=== PATIENT | female | born 1950 | race Caucasian/White ===

== ENCOUNTER 2018-01-23 08:52 | Emergency (ER) | payer MEDICARE ==
[~2018-01-23] VITALS: Ht 167.6 cm; Wt 90.0 kg
[~2018-01-23 08:52] MED LIST: CINNAMON500 MG PO; GLUCOPHAGE1000 MG PO; GLYBURIDE5 MG PO; KEFLEX500 MG PO; LISINOP/HCTZ1 TAB PO
[2018-01-23 09:54] LABS: HEMATOCRIT 38.5 % (37.0-47.0); HEMOGLOBIN 12.8 g/dl (12.0-16.0); IMMATURE GRANULOCYTES 0.4 % (0.0-1.0); MEAN CELL VOLUME 87.5 fL CALC (80.0-100.0); MEAN CORPUSCULAR HGB 29.1 pG CALC (26.0-32.0); MEAN CORPUSCULAR HGB CONC 33.2 g/L CALC (32.0-36.0); NEUT# 7.34 thou/uL (2.00-7.15); RED BLOOD COUNT 4.4 mill/uL (4.20-5.60); RED CELL DISTRI WIDTH 11.6 % (11.5-15.5)
[2018-01-23] MEDS ORDERED: GLIPIZIDE5 MG PO (09:59)
[2018-01-23] MEDS ORDERED: LASIX40 MG PO (10:00)
[2018-01-23] MEDS ORDERED: LOSARTAN POT25 MG PO (10:02)
[2018-01-23] MEDS ORDERED: GNP RED YEAST600 MG PO (10:03)
[2018-01-23 10:39] LABS: ALBUMIN 3.5 g/dL (3.2-5.0); ALKALINE PHOSPHATASE 77 u/l (38-126); ANION GAP 16 (6-22 (CALC)); BILIRUBIN, TOTAL 0.6 mg/dL (0.0-1.4); BUN 10 mg/dL (8-23); BUN/CREATININE RATIO 17 (12-20 (CALC)); CARBON DIOXIDE 24 mmol/l (22-30); CHLORIDE 99 mmol/l (95-108); CREATININE 0.6 mg/dL (0.5-1.0); GFR > 60 ML/MIN (>=60 (CALC)); GFR FOR AFR.AMER. > 60 ML/MIN (>=60 (CALC)); POTASSIUM 4.2 mmol/l (3.5-5.1); SGOT/AST 17 u/l (9-36); SGPT/ALT 40 u/l (11-66); SODIUM 135 mmol/l (137-146); TOTAL PROTEIN 6.2 g/dL (6.3-8.2)
[2018-01-23] MEDS ORDERED: PERCOCET 5/325M1 TAB PO ×2 (11:29→12:01)
[2018-01-23] MEDS ORDERED: FLEXERIL PO (11:29)
[2018-01-23] MEDS ORDERED: NAPROXEN DR500 MG PO (11:29)
[2018-01-23 12:14] VITALS: BP 128/65
== END 2018-01-23 11:57 | disposition home or self-care (01) ==
LOC: ED 08:52
PROVIDERS: Emergency Medicine
DX: M54.5 Low back pain (principal); E11.9 Type 2 diabetes mellitus without complications

== ENCOUNTER 2022-08-22 12:52 | Emergency (ER) | payer OTHER, MEDICARE ==
[~2022-08-22] VITALS: Ht 167.6 cm; Wt 86.4 kg
[~2022-08-22 12:52] MED LIST changes: +FLEXERIL PO; +GLIPIZIDE5 MG PO; +GNP RED YEAST600 MG PO; +LASIX40 MG PO; +LOSARTAN POT25 MG PO; +NAPROXEN DR500 MG PO; +PERCOCET 5/325M1 TAB PO
[2022-08-22 13:04] VITALS: BP 158/86
[2022-08-22 13:15] VITALS: BP 142/91
[2022-08-22] MEDS ORDERED: B12-ACTIVE1 MG PO (13:26)
[2022-08-22] MEDS ORDERED: DRIZALMA SPRINK20 MG PO (13:27)
[2022-08-22 15:00] VITALS: BP 170/72
== END 2022-08-22 15:01 | disposition home or self-care (01) | DRG 605 ==
LOC: ED 12:52
DX: S00.03XA Contusion of scalp, initial encounter (principal); S06.0X0A Concussion without loss of consciousness, initial encounter; W01.0XXA Fall on same level from slipping, tripping and stumbling without subsequent striking against object, initial encounter

== ENCOUNTER 2024-07-13 09:31 | Observation (INO) | payer MEDICARE ==
[~2024-07-13] VITALS: Ht 165.1 cm; Wt 76.2 kg
[~2024-07-13 09:31] MED LIST changes: +ALEVE220 M2 PO; +B12-ACTIVE1 MG PO; +B121000 MC1; +CINSULIN PO; +COZAAR25 MG PO; +DIAZEPAM10 MG PO; +DRIZALMA SPRINK20 MG PO; +DULCOLAX5 MG PO; +FLEXERIL5 M1 PO; +GLIPIZIDE ER5 MG PO; +GLYCOPYRROLATE 0.2 MG/ML IV ONE; +HYDROCO/APAP1 TA9 PO; +KETOROLAC TROMETHAMINE 30 MG/ML SDV IV ONE; +LIDOCAINE HCL 2% 2ML SDV IV ONE; +METFORMIN500 M2 PO; +METOPROLOL TARTRATE 5 MG/5 ML VIAL IV ONE; +ONDANSETRON HCl 4 MG/2 ML SDV IV ONE; +OXYCODONE5 M1 PO; +PROPOFOL 200 MG/20 ML VIAL IV ONE; +ROCURONIUM BROMIDE 10 MG/ML 5ML VIAL IV ONE; +SODIUM CHLORIDE 0.9% 1,000 ML BAG IV ONE; +SUCCINYLCHOLINE CHLORIDE 20 MG/ML 10ML VIAL IV ONE; +SUGAMMADEX SODIUM 200 MG/2 ML SDV IV ONE; +ePHEDrine SULFATE 50 MG/ML AMP IV ONE; +hydrALAZINE HCL 20 MG/ML VIAL(1 ML) IV ONE
[2024-07-13] MEDS ORDERED: SODIUM CHLORIDE 0.9% 100 ML IV ONE (09:34)
[2024-07-13] MEDS ORDERED: ceFAZolin Sodium 2 GM/VIAL SDV ONE (09:34)
[2024-07-13] MEDS ORDERED: FAMOTIDINE 10MG/ML 2ML SDV IV ONE (09:34)
[2024-07-13] MEDS ORDERED: SODIUM CHLORIDE 0.9% 1,000 ML IV ONE (09:34)
[2024-07-13] MEDS ORDERED: LIDOcaine HCl 1% (Local Anesth.) 20 ML VIAL ONE (10:09)
[2024-07-13] MEDS ORDERED: SODIUM CHLORIDE 1,000 ML BTL IR ONE (10:09)
[2024-07-13] MEDS ORDERED: STERILE WATER FOR IRRIGATION 1,000 ML BTL IR ONE (10:09)
[2024-07-13] MEDS ORDERED: BUPIVACAINE HCL PF 0.5 % 50 MG/10 ML SDV ONE (11:15)
[2024-07-13] MEDS ORDERED: HYDROCO/APAP1 TA9 PO (11:15)
[2024-07-13] MEDS ORDERED: ACETAMINOPHEN 100 ML IV ONE (12:25)
[2024-07-13] MEDS ORDERED: HYDROmorphone HCL 2 MG/AMP ONE (12:38)
[2024-07-13] MEDS ORDERED: HYDROmorphone HCL 2 MG/AMP IV PRN (14:25)
[2024-07-13] MEDS ORDERED: SODIUM CHLORIDE 0.9% 1,000 ML IV PRN (14:25)
[2024-07-13] MEDS ORDERED: oxyCODONE 5MG/ ACETAMINOPHEN 325MG TAB PO PRN (14:25)
[2024-07-13] MEDS ORDERED: DEXTROSE 250 ML IV PRN (14:30)
--- NOTE | 2024-07-13 14:40 | NUR ---
PATIENT ADMITTED FROM OR TO ROOM 277. PATIENT A&OX4 AND ABLE TO MAKE NEEDS KNOWN. PATIENT ORIENTED TO ROOM, CALL LIGHT, AND SURROUNDINGS, PATIENT VERBALIZED UNDERSTANDING. PATIENT DENIES ANY NEEDS AT THIS TIME. PATIENT TOP 2 SIDERAILS UP, BED AT LOWEST LEVEL, AND CALL LIGHT WITHIN REACH.
[2024-07-13 15:38] VITALS: BP 136/63
--- NOTE | 2024-07-13 15:41 | NUR ---
PATIENT SITTING UP IN BED. FAMILY AT BEDSIDE. PATIENT DENIES ANY NEEDS AT THIS TIME.
--- NOTE | 2024-07-13 15:48 | NUR ---
PATIENT REFUSING POST-OP VITAL SIGNS.
--- NOTE | 2024-07-13 15:48 | NUR ---
Iwent in to set patient up for post op vitals, but patient stated she does not like our machine and does not want it. I notified nurse. I did take one set and they were ok. 97.3, 76, 18, 136/63, and 94.
[2024-07-13] MEDS ORDERED: INSULIN LISPRO 100 UNITS/ML ML SC SCH (17:00)
[2024-07-13] MEDS ORDERED: KETOROLAC TROMETHAMINE 15 MG/ML SDV IV SCH (18:00)
[2024-07-13 18:30] VITALS: BP 134/71
[2024-07-13 18:38] VITALS: BP 134/71
--- NOTE | 2024-07-13 19:45 | NUR ---
PT RESTING IN BED NO DISTRESS NOTED ON EXAM. PT STATED NOT HAVING ANY PAIN UNLESS SHE COUGHS OR MOVES. ABD INCISION WITH NO SIGN OF INFECTION A TOTAL OF 8 WITH DERMABOND. PT HAS HYPOACTIVE BS AND ERUCTATION. PT HAS NOT VOIDED SINCE PROCEDURE WILL BLADDER SCAN AFTER GIVEN HER IV FLUIDS. IV FLUSHED WORKING PROPERLY AND NS IV FLUIDS STARTED. NO EDEMA NOTED OTHER THEN SURGEICAL SITES SKIN INTACT. CALL LIGHT WITHIN REACH. PLAN OF CARE ONGOING.
--- NOTE | 2024-07-13 21:45 | NUR ---
PT WAS ABLE TO URINATE.
--- NOTE | 2024-07-14 00:15 | NUR ---
PT SLEEPING EASILY AROUSABLE. CALL LIGHT WITHIN REACH. IV FLUID INFUSION ONGOING.
[2024-07-14 03:59] VITALS: BP 128/59
[2024-07-14 04:00] VITALS: BP 128/59
--- NOTE | 2024-07-14 04:35 | NUR ---
PT SLEEPING NO DISTRESS NOTED ON EXAM. IV FLUIDS ONGOING WORKING PROPERLY. CALL LIGHT WITHIN REACH. PLAN OF CARE ONGOING.
--- NOTE | 2024-07-14 07:08 | NUR ---
PT LAYING IN BED RESTING WITH EYES CLOSED, AROUSES EASILY TO VERBAL STIMULI, PT IS A&O X3, PUPILS PERRL, RESP. EVEN AND UNLABORED, LUNG SOUNDS ARE CLEAR, NORMAL S1 S2 HEART SOUNDS, ABD DISTENDED WITH ACTIVE BOWEL SOUNDS, SURGICAL SITES FREE FROM REDNESS AND BLEEDING, 20G LW IV, STRONG RADIAL PULSES AND WEAK PEDAL PULSES, SAFETY MEASURES REINFORCED, CALL HERNANDEZ WITHIN REACH
[2024-07-14 07:10] VITALS: BP 147/68
--- NOTE | 2024-07-14 09:31 | NUR ---
PT ABLE TO BE DISCHARGED PER MD, PT REQUESTED TO SPEAK TO MD PRIOR TO DISCHARGE, MD AWARE
--- NOTE | 2024-07-14 12:00 | NUR ---
PT SITTING UP IN THE BED EATING LUNCH, NO S/S OF DISTRESS, RI REMINDED TO CALL FOR ASSISTANCE, CALL HERNANDEZ WITHIN REACH
--- NOTE | 2024-07-14 13:00 | NUR ---
Discharge instructions given. Patient verbalizes understanding of same. Discharged in stable condition via Wheelchair to Home with friend. All belongings sent with pt.
== END 2024-07-14 13:00 | disposition home or self-care (01) ==
LOC: ORM 09:31 → MS2 14:40
PROVIDERS: ADMIT Surgery; ATTEND Surgery
PROC: 0WUF4JZ Supplement Abdominal Wall with Synthetic Substitute, Percutaneous Endoscopic Approach (ICD-10-PCS; principal; 2024-07-13)
DX: K43.2 Incisional hernia without obstruction or gangrene (principal); E11.9 Type 2 diabetes mellitus without complications; Z79.4 Long term (current) use of insulin; Z79.84 Long term (current) use of oral hypoglycemic drugs
CPT/HCPCS: C1781; J0131; J0690; J1815